=== PATIENT | female | born 1985 | race African-American/Black ===

== ENCOUNTER 2017-02-06 13:15 | Observation (INO) | payer MEDICAID ==
[~2017-02-06 13:15] MED LIST: PREN-96 PO
[2017-02-06] MEDS ORDERED: LACTATED RINGER'S 1,000 ML IV SCH (13:46)
[2017-02-06 14:51] LABS: Basophils # (auto) 0 uL; Basophils % (auto) 0.5 % (0.0-2.0); CONDITION Y; Eosinophils # (auto) 0.2 uL; Eosinophils % (auto) 1.8 % (0.0-7.0); Hematocrit 36.3 % (36.0-46.0); Hemoglobin 11.9 g/dL (12.2-16.2); Lymphocytes # (auto) 1.9 uL; Lymphocytes % (auto) 21.5 % (10.0-50.0); Mean Corpuscular Hemoglobin 29.9 pg (28.0-32.0); Mean Corpuscular Hgb Conc. 32.9 g/dL (32.0-36.0); Mean Corpuscular Volume 90.9 fL (80.0-100.0); Mean Platelet Volume 10.2 fL (7.4-10.4); Monocytes # (auto) 0.5 uL; Monocytes % (auto) 5.5 % (0.0-12.0); Neutrophils # (auto) 6.2 uL; Neutrophils % (auto) 70.7 % (37.0-80.0); Platelet Count (auto) 173 10^3/uL (140-450); Red Cell Distribution Width 14.2 % (11.6-16.0); White Blood Cell 8.8 10^3/uL (4.4-10.8)
[2017-02-06 15:07] LABS: INR 0.88 (0.9-1.15); Partial Thromboplastin Time 27.6 sec (22.64-33.71); Prothrombin Time 9.6 sec (9.37-12.3)
[2017-02-06 15:14] LABS: Albumin 2.6 g/dL (3.4-5.0); Bilirubin, Total 0.3 mg/dL (0.2-1.0); Calcium 8.5 mg/dL (8.5-10.1); Potassium 3.4 mmol/L (3.5-5.1); Total Protein 6.6 g/dL (6.4-8.2); Uric Acid 5.1 mg/dL (2.6-6.0)
[2017-02-06 15:23] LABS: Urine Bilirubin Negative (Negative); Urine Color Yellow (Yellow); Urine Glucose Normal (Normal); Urine Nitrite Negative (Negative); Urine RBC 9 /hpf (0 - 4); Urine Squamous Epithelial Cell FEW /hpf (<5); Urine Urobilinogen Normal (Negative)
[2017-02-06 15:30] LABS: Urine Blood 1+ /uL (Negative); Urine Ketone 2+ (Negative)
[2017-02-06] MEDS ORDERED: ACETAMINOPHEN/CODEINE#3 (300/30mg) TAB ONE (16:19)
[2017-02-09 12:06] LABS: HTLV-I/II Antibodies Qual Negative (Negative)
== END 2017-02-06 16:50 | disposition home or self-care (01) | DRG 566 ==
LOC: LDRP 13:15
PROVIDERS: ADMIT Specialist; ATTEND Specialist
DX: O62.9 Abnormality of forces of labor, unspecified (principal); Z87.891 Personal history of nicotine dependence; Z3A.37 37 weeks gestation of pregnancy
CPT/HCPCS: 36415; 59025; 80053; 80307; 81001; 81002; 84550; 85025; 85610; 85730; 86592; 86762; 86790; 86850; 86900; 86901; 87340; 96360; 96361; G0378

== ENCOUNTER 2017-02-06 23:10 | Inpatient (IN) | payer MEDICAID ==
[~2017-02-06] VITALS: Ht 165.1 cm; Wt 65.8 kg
[2017-02-07 01:03] LABS: Urine Bilirubin Negative (Negative); Urine Color Yellow (Yellow); Urine Glucose Normal (Normal); Urine Ketone Negative (Negative); Urine Mucus FEW (None Seen); Urine Nitrite Negative (Negative); Urine RBC 2 /hpf (0 - 4); Urine Squamous Epithelial Cell FEW /hpf (<5); Urine Urobilinogen Normal (Negative)
[2017-02-07 01:13] LABS: Urine Blood 2+ /uL (Negative)
[2017-02-07] MEDS ORDERED: LACT. RINGERS/OXYTOCIN 20UNITS 1,000 ML IV SCH (01:37)
[2017-02-07] MEDS ORDERED: LACTATED RINGER'S 1,000 ML IV SCH (01:37)
[2017-02-07] MEDS ORDERED: PENICILLIN G POT 5MIL/D5 50ML 50 ML IV ONE ×2 (01:37→01:45)
[2017-02-07] MEDS ORDERED: LIDOCAINE 2%HCL (LOCAL ANESTH.) INJ 20ML MDV IJ ONE (01:45)
[2017-02-07] MEDS ORDERED: CARBOPROST TROMETHAMINE 250 MCG/1ML VIAL IM PRN (01:45)
[2017-02-07] MEDS ORDERED: DERMOPLAST 60ML BOTTLE TOP PRN (01:45)
[2017-02-07] MEDS ORDERED: METHYLERGONOVINE MALEATE 0.2 MG/ML AMP IM PRN (01:45)
[2017-02-07] MEDS ORDERED: PHISODERM TOP SOLN 240ML BTL TOP PRN (01:45)
[2017-02-07] MEDS ORDERED: NALBUPHINE HCL 10 MG/1ml INJECTION IV PRN (01:45)
[2017-02-07] MEDS ORDERED: WITCH HAZEL-GLYCERIN PAD TOP PRN (01:45)
[2017-02-07] MEDS ORDERED: LIDOCAINE 2%HCL (LOCAL ANESTH.) INJ 20ML MDV ONE (01:50)
[2017-02-07] MEDS ORDERED: LACT. RINGERS/OXYTOCIN 20UNITS 1,000 ML IV ONE (01:50)
[2017-02-07] MEDS ORDERED: DERMOPLAST 60ML BOTTLE TOP ONE (01:50)
[2017-02-07] MEDS ORDERED: PHISODERM TOP SOLN 240ML BTL TOP ONE (01:50)
[2017-02-07] MEDS ORDERED: WITCH HAZEL-GLYCERIN PAD TOP ONE (01:50)
[2017-02-07 04:04] LABS: Basophils # (auto) 0 uL; Basophils % (auto) 0.3 % (0.0-2.0); CONDITION Y; Eosinophils # (auto) 0.1 uL; Hematocrit 35.2 % (36.0-46.0); Hemoglobin 11.7 g/dL (12.2-16.2); Lymphocytes # (auto) 1.6 uL; Lymphocytes % (auto) 18.6 % (10.0-50.0); Mean Corpuscular Hemoglobin 30.3 pg (28.0-32.0); Mean Corpuscular Hgb Conc. 33.3 g/dL (32.0-36.0); Mean Platelet Volume 10.4 fL (7.4-10.4); Monocytes # (auto) 0.5 uL; Monocytes % (auto) 5.5 % (0.0-12.0); Neutrophils # (auto) 6.3 uL; Neutrophils % (auto) 74.6 % (37.0-80.0); Platelet Count (auto) 181 10^3/uL (140-450); Red Cell Distribution Width 14.8 % (11.6-16.0); White Blood Cell 8.5 10^3/uL (4.4-10.8)
[2017-02-07 04:50] LABS: Albumin 2.4 g/dL (3.4-5.0); BUN/Creatinine Ratio 9.2; Bilirubin, Total 0.2 mg/dL (0.2-1.0); Calcium 8.9 mg/dL (8.5-10.1); Potassium 3.1 mmol/L (3.5-5.1); Total Protein 6.3 g/dL (6.4-8.2)
[2017-02-07 05:25] LABS: INR 0.91 (0.9-1.15); Partial Thromboplastin Time 25.7 sec (22.64-33.71); Prothrombin Time 9.9 sec (9.37-12.3)
[2017-02-07] MEDS: ACETAMINOPHEN 325 MG TAB PO PRN ×2 (07:29→13:15)
[2017-02-07 08:02] VITALS: BP 125/79
[2017-02-07] MEDS: DOCUSATE CALCIUM 240 MG CAP PO SCH (10:00)
[2017-02-07 12:00] VITALS: BP 105/63
[2017-02-07] MEDS: IBUPROFEN 600 MG TAB PO PRN ×2 (15:12→21:55)
[2017-02-07 16:00] VITALS: BP 117/58
[2017-02-07 20:15] VITALS: BP 129/70
[2017-02-08] VITALS (7 sets, daily range): BP systolic 107–125; BP diastolic 56–82
[2017-02-08] MEDS: ACETAMINOPHEN 325 MG TAB PO PRN (00:27)
[2017-02-08] MEDS: HYDROcodone-ACET 5/325MG TAB PO PRN ×4 (08:10→22:58)
[2017-02-08] MEDS: IBUPROFEN 600 MG TAB PO PRN (10:45)
[2017-02-08] MEDS: DOCUSATE CALCIUM 240 MG CAP PO SCH (12:18)
[2017-02-09] MEDS: HYDROcodone-ACET 5/325MG TAB PO PRN ×2 (02:54→09:45)
[2017-02-09 03:59] VITALS: BP 107/77
[2017-02-09 08:00] VITALS: BP 128/83
[2017-02-09] MEDS ORDERED: TETANUS-DIPTH-ACEL PERTUSSIS 0.5ML SYRG IM ONE (09:30)
[2017-02-09] MEDS: DOCUSATE CALCIUM 240 MG CAP PO SCH (09:38)
[2017-02-09 12:00] VITALS: BP 112/61
== END 2017-02-09 12:00 | disposition home or self-care (01) | DRG 560 ==
LOC: LDRP 23:10 → OBSVTOIN 02-07 01:28 → LDRP 02-07 01:29
PROVIDERS: ADMIT Specialist; ATTEND Specialist
PROC: 10E0XZZ Delivery of Products of Conception, External Approach (ICD-10-PCS; principal; 2017-02-07)
DX: O62.3 Precipitate labor (principal); O77.0 Labor and delivery complicated by meconium in amniotic fluid; O69.81X0 Labor and delivery complicated by cord around neck, without compression, not applicable or unspecified; Z37.0 Single live birth; Z3A.37 37 weeks gestation of pregnancy; Z23 Encounter for immunization
CPT/HCPCS: 36415; 59025; 59409; 80053; 80307; 81001; 81002; 85025; 85610; 85730; 86592; 86703; 86762; 86850; 86900; 86901; 87340; 90472; 90715; 93971; 96365; 96366; G0378; J2540; J2590

== ENCOUNTER 2017-07-19 10:38 | Emergency (ER) | payer MEDICAID ==
[~2017-07-19] VITALS: Ht 165.1 cm; Wt 56.7 kg
[2017-07-19] MEDS ORDERED: SODIUM CHLORIDE 0.9% 1,000 ML IVB ONE (10:58)
[2017-07-19] MEDS ORDERED: ONDANSETRON HCL 4 MG/2 ML VIAL IV ONE (11:00)
[2017-07-19] MEDS ORDERED: MORPHINE SULFATE 4 MG/ML SYRG IV ONE (11:00)
[2017-07-19 11:22] VITALS: BP 128/88
[2017-07-19 11:31] LABS: Basophils # (auto) 0.1 uL; Basophils % (auto) 1.1 % (0.0-2.0); Eosinophils # (auto) 0.4 uL; Eosinophils % (auto) 5.4 % (0.0-7.0); Hemoglobin 13.3 g/dL (12.2-16.2); Lymphocytes # (auto) 2.6 uL; Lymphocytes % (auto) 33.6 % (10.0-50.0); Mean Corpuscular Hemoglobin 30.9 pg (28.0-32.0); Mean Corpuscular Hgb Conc. 32.5 g/dL (32.0-36.0); Mean Platelet Volume 9.1 fL (6.9-10.8); Monocytes # (auto) 0.4 uL; Monocytes % (auto) 5.5 % (0.0-12.0); Neutrophils # (auto) 4.3 uL; Neutrophils % (auto) 54.4 % (37.0-80.0); Nucleated Red Blood Cells % 0.2 %; Platelet Count (auto) 171 10^3/uL (140-450); Red Cell Distribution Width 14.1 % (11.8-14.3); White Blood Cell 7.8 10^3/uL (4.4-10.8)
[2017-07-19 11:50] LABS: Albumin 3.7 g/dL (3.4-5.0); BUN/Creatinine Ratio 10.7; Bilirubin, Total 0.3 mg/dL (0.2-1.0); Calcium 8.6 mg/dL (8.5-10.1); Potassium 4.2 mmol/L (3.5-5.1); Total Protein 7.1 g/dL (6.4-8.2)
[2017-07-19 11:53] LABS: INR 0.96 (0.9-1.15); Partial Thromboplastin Time 26.8 sec (22.64-33.71); Prothrombin Time 10.5 sec (9.37-12.3)
== END 2017-07-19 13:00 | disposition home or self-care (01) ==
LOC: ER 10:38
DX: O46.91 Antepartum hemorrhage, unspecified, first trimester (principal); O99.331 Smoking (tobacco) complicating pregnancy, first trimester; F17.210 Nicotine dependence, cigarettes, uncomplicated; Z3A.00 Weeks of gestation of pregnancy not specified
CPT/HCPCS: 36415; 76801; 76817; 80053; 84702; 85025; 85610; 85730; 86850; 86900; 86901; 94761; 96361; 96374; 96375; 99285; J2270; J2405; J7030

== ENCOUNTER 2018-05-11 06:50 | Inpatient (IN) | payer MEDICAID ==
[~2018-05-11] VITALS: Ht 1 cm; Wt 0.5 kg
[2018-05-11] MEDS ORDERED: LACTATED RINGER'S 1,000 ML IV SCH (07:22)
[2018-05-11] MEDS ORDERED: LACT. RINGERS/OXYTOCIN 20UNITS 1,000 ML IV SCH (07:22)
[2018-05-11] MEDS ORDERED: PHISODERM TOP SOLN 240ML BTL TOP PRN (07:30)
[2018-05-11] MEDS ORDERED: DERMOPLAST 60ML BOTTLE TOP PRN (07:30)
[2018-05-11] MEDS ORDERED: WITCH HAZEL-GLYCERIN PAD TOP PRN (07:30)
[2018-05-11] MEDS ORDERED: LIDOCAINE 2% (LOCAL ANESTH.) PF 5ml SDV ID ONE (07:30)
[2018-05-11 08:12] LABS: Basophils # (auto) 0.1 uL; Basophils % (auto) 0.5 % (0.0-2.0); Eosinophils # (auto) 0 uL; Eosinophils % (auto) 0.4 % (0.0-7.0); Hematocrit 37.5 % (36.0-46.0); Hemoglobin 12.3 g/dL (12.2-16.2); Lymphocytes # (auto) 1.2 uL; Lymphocytes % (auto) 9.5 % (10.0-50.0); Mean Corpuscular Hemoglobin 30.5 pg (28.0-32.0); Mean Corpuscular Hgb Conc. 32.8 g/dL (32.0-36.0); Mean Corpuscular Volume 92.9 fL (80.0-100.0); Monocytes # (auto) 0.6 uL; Monocytes % (auto) 5.2 % (0.0-12.0); Neutrophils # (auto) 10.4 uL; Neutrophils % (auto) 84.4 % (37.0-80.0); Nucleated Red Blood Cells % 0.1 %; Platelet Count (auto) 138 10^3/uL (140-450); Red Blood Cells 4.03 10^6/uL (4.0-5.20); Red Cell Distribution Width 13.9 % (11.8-14.3); White Blood Cell 12.3 10^3/uL (4.4-10.8)
[2018-05-11] MEDS: IBUPROFEN 600 MG TAB PO PRN ×3 (08:15→22:54)
[2018-05-11 08:32] LABS: INR 0.92 (0.9-1.15); Partial Thromboplastin Time 25.9 sec (23.78-33.04); Prothrombin Time 9.9 sec (9.27-12.13)
[2018-05-11 08:33] LABS: Albumin 2.7 g/dL (3.4-5.0); BUN/Creatinine Ratio 9.4; Calcium 8.2 mg/dL (8.5-10.1); Potassium 3.5 mmol/L (3.5-5.1)
[2018-05-11 08:36] LABS: Bilirubin, Total 0.4 mg/dL (0.2-1.0)
[2018-05-11 08:56] LABS: Urine Bacteria NONE SEEN /hpf (None Seen); Urine Blood 1+ /uL (Negative); Urine Mucus FEW (None Seen); Urine Specific Gravity 1.037 (1.001-1.035); Urine WBC 45 /hpf (0 - 5)
[2018-05-11 09:18] LABS: Alcohol, Urine < 3.0 mg/dL (0-5); Amphetamine Screen, Urine POSITIVE (NEGATIVE); Barbiturate Scree,Urine NEGATIVE (NEGATIVE); Benzodiazephine Screen, Urine NEGATIVE (NEGATIVE); Cannabinoid Screen, Urine POSITIVE (NEGATIVE); Cocaine Screen, Urine NEGATIVE (NEGATIVE); Opiate Scree,Urine NEGATIVE (NEGATIVE); Phencyclidine Screen, Urine NEGATIVE (NEGATIVE)
[2018-05-11] MEDS: DOCUSATE CALCIUM 240 MG CAP PO SCH (10:00)
[2018-05-11 11:00] VITALS: BP 113/73
[2018-05-11 15:00] VITALS: BP 101/66
[2018-05-11] MEDS ORDERED: ACETAMINOPHEN/CODEINE#3 (300/30mg) TAB PO PRN (15:45)
[2018-05-11] MEDS ORDERED: IBUPROFEN 600 MG TAB PO ONE (18:47)
[2018-05-11 19:00] VITALS: BP 110/86
[2018-05-11] MEDS: ACETAMINOPHEN/CODEINE#3 (300/30mg) TAB PO PRN (20:21)
[2018-05-11 23:00] VITALS: BP 124/74
[2018-05-12] VITALS (8 sets, daily range): BP systolic 101–119; BP diastolic 57–75
[2018-05-12] MEDS: ACETAMINOPHEN/CODEINE#3 (300/30mg) TAB PO PRN ×4 (00:03→16:35)
[2018-05-12] MEDS: IBUPROFEN 600 MG TAB PO PRN ×2 (04:00→19:56)
[2018-05-12 06:08] LABS: RPR Non Reactive (Non Reactive)
[2018-05-12 08:05] LABS: Rubella Antibodies, IgG 1.33 index (Immune >0.99)
[2018-05-12] MEDS: DOCUSATE CALCIUM 240 MG CAP PO SCH (09:53)
[2018-05-12] MEDS ORDERED: INFLUENZA QUAD 2018-2019 0.5 ML SYRG IM ONE (15:00)
[2018-05-12] MEDS ORDERED: TETANUS-DIPTH-ACEL PERTUSSIS 0.5ML SYRG IM ONE (15:00)
[2018-05-13 03:00] VITALS: BP 105/63
[2018-05-13 06:35] VITALS: BP 135/71
[2018-05-13] MEDS: IBUPROFEN 600 MG TAB PO PRN (06:35)
[2018-05-13] MEDS: DOCUSATE CALCIUM 240 MG CAP PO SCH (10:00)
[2018-05-13 11:00] VITALS: BP 116/82
== END 2018-05-13 11:55 | disposition home or self-care (01) | DRG 560 ==
LOC: LDRP 06:50 → OBSVTOIN 06:50
PROVIDERS: ADMIT Specialist; ATTEND Specialist
PROC: 10E0XZZ Delivery of Products of Conception, External Approach (ICD-10-PCS; principal; 2018-05-11)
DX: O77.0 Labor and delivery complicated by meconium in amniotic fluid (principal); O62.3 Precipitate labor; O69.81X0 Labor and delivery complicated by cord around neck, without compression, not applicable or unspecified; Z37.0 Single live birth; Z3A.36 36 weeks gestation of pregnancy
CPT/HCPCS: 36415; 59025; 59409; 80053; 80307; 81001; 85025; 85610; 85730; 86592; 86762; 86850; 86900; 86901; 87340; 90472; 90674; 90715; 96365; 96366; 96372

== ENCOUNTER 2018-08-08 12:48 | Emergency (ER) | payer SELFPAY ==
[~2018-08-08] VITALS: Ht 165.1 cm; Wt 61.2 kg
[2018-08-08 14:48] VITALS: BP 116/75
[2018-08-08] MEDS ORDERED: BACITRACIN TOP OINT 1 UD PKG TOP ONE ×2 (16:00→17:14)
[2018-08-08] MEDS ORDERED: LET TOPICAL SOLN 5 ML TOP ONE (16:00)
[2018-08-08] MEDS ORDERED: TETANUS-DIPTH-ACEL PERTUSSIS 0.5ML SYRG IM ONE (16:00)
[2018-08-08] MEDS ORDERED: LIDOCAINE 1% (LOCAL ANESTH.) PF 5ml SDV ID ONE (16:00)
== END 2018-08-08 17:15 | disposition home or self-care (01) ==
LOC: ER 12:48
DX: S61.210A Laceration without foreign body of right index finger without damage to nail, initial encounter (principal); S61.011A Laceration without foreign body of right thumb without damage to nail, initial encounter; F17.210 Nicotine dependence, cigarettes, uncomplicated
CPT/HCPCS: 12001; 90471; 90715; 99283; J3490

== ENCOUNTER 2018-10-29 18:12 | Emergency (ER) | payer MEDICAID ==
[~2018-10-29] VITALS: Ht 165.1 cm; Wt 65.8 kg
[2018-10-29] MEDS ORDERED: IBUPROFEN 800 MG TAB PO ONE (22:30)
[2018-10-30 00:38] VITALS: BP 146/82
== END 2018-10-30 01:59 | disposition home or self-care (01) ==
LOC: ER 18:15
DX: S41.001A Unspecified open wound of right shoulder, initial encounter (principal); R10.2 Pelvic and perineal pain; F17.210 Nicotine dependence, cigarettes, uncomplicated; F12.90 Cannabis use, unspecified, uncomplicated; Y08.89XA Assault by other specified means, initial encounter; Y93.89 Activity, other specified; Y99.8 Other external cause status; Y92.89 Other specified places as the place of occurrence of the external cause
CPT/HCPCS: 72170; 73030; 81025; 94761

== ENCOUNTER → 2020-02-06 | Emergency (ER) | payer MEDICAID ==
[~2020-02-06] VITALS: Ht 165.1 cm; Wt 65.8 kg
[~2020-02-06] MED LIST changes: +FLUORESCEIN SOD 1 MG TEST STRIP OP ONE; -PREN-96 PO
[2020-02-06 14:28] VITALS: BP 119/63
== END | disposition home or self-care (01) ==
LOC: ER 13:28
DX: S05.02XA Injury of conjunctiva and corneal abrasion without foreign body, left eye, initial encounter (principal); S05.01XA Injury of conjunctiva and corneal abrasion without foreign body, right eye, initial encounter; X58.XXXA Exposure to other specified factors, initial encounter; Y93.89 Activity, other specified; Y92.89 Other specified places as the place of occurrence of the external cause; Y99.8 Other external cause status
CPT/HCPCS: 82962

== ENCOUNTER 2021-02-20 21:55 | Emergency (ER) | payer MEDICAID ==
[~2021-02-20] VITALS: Ht 165.1 cm; Wt 79.4 kg
[2021-02-20 22:30] VITALS: BP 111/71
== END 2021-02-21 00:26 | disposition left against medical advice (07) ==
LOC: ER 21:55
DX: R10.84 Generalized abdominal pain (principal); Z53.21 Procedure and treatment not carried out due to patient leaving prior to being seen by health care provider

== ENCOUNTER 2022-10-18 19:12 | Emergency (ER) | payer MEDICAID ==
[~2022-10-18] VITALS: Ht 165.1 cm; Wt 59.1 kg
[2022-10-18] MEDS ORDERED: LORazepam 2MG/ML-1ML VIAL IM ONE (20:30)
[2022-10-18 22:28] LABS: Basophils # (auto) 0 10 ^3/uL (0-0.2); Basophils % (auto) 0.1 % (0.0-2.0); Eosinophils # (auto) 0.1 10 ^3/uL (0-0.8); Eosinophils % (auto) 0.7 % (0.0-7.0); Hematocrit 42.6 % (36.0-46.0); Hemoglobin 14.1 g/dL (12.2-16.2); Lymphocytes % (auto) 14.4 % (10.0-50.0); Mean Corpuscular Hemoglobin 30.2 pg (28.0-32.0); Mean Corpuscular Hgb Conc. 33.2 g/dL (32.0-36.0); Monocytes # (auto) 1.3 10 ^3/uL (0-1.3); Monocytes % (auto) 9.5 % (0.0-12.0); Neutrophils # (auto) 10.4 10 ^3/uL (1.6-8.6); Neutrophils % (auto) 75.3 % (37.0-80.0); Red Blood Cells 4.68 10^6/uL (4.0-5.20); Red Cell Distribution Width 13.5 % (11.8-14.3); White Blood Cell 13.9 10^3/uL (4.4-10.8)
[2022-10-18 22:37] LABS: Albumin 4.3 g/dL (3.4-5.0); Anion Gap 10 (5-15); Blood Alcohol < 3.0 mg/dL (0-5); Blood Urea Nitrogen 24 mg/dL (7-18); Calcium 9.2 mg/dL (8.5-10.1); Carbon Dioxide 20 mmol/L (21-32); Chloride 107 mmol/L (98-107); Glucose 103 mg/dL (74-106); Potassium 4.1 mmol/L (3.5-5.1); Sodium 137 mmol/L (136-145)
[2022-10-18 22:42] LABS: Alanine Aminotransferase 22 U/L (13-56); Alkaline Phosphatase 55 U/L (45-117); Aspartate Aminotransferase 27 U/L (15-37); Bilirubin, Total 0.5 mg/dL (0.2-1.0); GFR African American 46 mL/min; GFR Non-African American 38 mL/min; Total Protein 8.1 g/dL (6.4-8.2)
[2022-10-18 22:50] LABS: Acetaminophen < 2.0 ug/mL (10-30)
[2022-10-19] MEDS ORDERED: OLANZapine 5 MG TAB PO ONE (01:45)
[2022-10-19 07:42] LABS: Amphetamine Screen, Urine NEGATIVE (NEGATIVE); Barbiturate Scree,Urine NEGATIVE (NEGATIVE); Benzodiazephine Screen, Urine NEGATIVE (NEGATIVE); Cannabinoid Screen, Urine POSITIVE (NEGATIVE); Cocaine Screen, Urine NEGATIVE (NEGATIVE); Opiate Scree,Urine NEGATIVE (NEGATIVE); Phencyclidine Screen, Urine NEGATIVE (NEGATIVE)
[2022-10-19 20:30] VITALS: BP 130/60
[2022-10-19] MEDS ORDERED: OLANZapine 5 MG TAB PO SCH (22:00)
== END 2022-10-19 21:16 | disposition short-term general hospital (02) ==
LOC: ER 19:15
DX: F31.9 Bipolar disorder, unspecified (principal); F20.9 Schizophrenia, unspecified; R41.82 Altered mental status, unspecified; F41.9 Anxiety disorder, unspecified; F17.210 Nicotine dependence, cigarettes, uncomplicated; F12.10 Cannabis abuse, uncomplicated; F15.10 Other stimulant abuse, uncomplicated; R10.2 Pelvic and perineal pain; Z20.822 Contact with and (suspected) exposure to COVID-19
CPT/HCPCS: 36415; 80053; 80307; 80320; 80329; 84702; 85025; 87426; 96372; 99283; J2060

== ENCOUNTER 2024-01-21 10:42 | Emergency (ER) | payer MEDICAID ==
[~2024-01-21] VITALS: Ht 165.1 cm; Wt 66.7 kg
[2024-01-21 11:35] VITALS: TEMP 98.2
[2024-01-21] MEDS: MORPHINE SULFATE INJ 2 MG/ml SYRG IM ONE (12:18)
[2024-01-21] MEDS: ONDANSETRON ODT 4 MG TAB PO ONE (12:18)
[2024-01-21 12:40] LABS: Urine Bacteria FEW /hpf (None Seen); Urine Blood Negative /uL (Negative); Urine Clarity Clear (Clear); Urine Color Light-Yellow (Yellow); Urine Mucus FEW (None Seen); Urine Protein, UAD Negative (Negative); Urine Urobilinogen Normal (Negative); Urine WBC 1 /hpf (0 - 5); Urine pH 6.5 (5.0-9.0)
[2024-01-21] MEDS ORDERED: TRAM-626 PO (12:45)
[2024-01-21] MEDS ORDERED: PRED20TA2 PO (12:45)
[2024-01-21 12:55] VITALS: BP 133/64; PULSE 68; RESP 18; O2SAT 100
== END 2024-01-21 12:59 | disposition home or self-care (01) ==
LOC: ER 10:42
DX: G89.29 Other chronic pain (principal); M54.41 Lumbago with sciatica, right side; F17.210 Nicotine dependence, cigarettes, uncomplicated; F12.10 Cannabis abuse, uncomplicated; F20.9 Schizophrenia, unspecified; Z86.2 Personal history of diseases of the blood and blood-forming organs and certain disorders involving the immune mechanism
CPT/HCPCS: 81001; 96372; 99283; J2270; Q0162